=== PATIENT | female | born 1955 | race Caucasian/White ===

== ENCOUNTER 2023-09-05 07:44 | Outpatient (OUT) | payer MEDICARE, SELFPAY ==
--- NOTE | 2023-09-05 08:00 | NM_ITS ---
The [address] [address] Patient Name: HARSH MARRUFO MRN: [id number] date: 1955 Sex: F Assigned Patient Location: OR Current Patient Location: OR Accession/Order Number: [id number] Exam Date: 09/05/2023 08:00 Report Date: 09/05/2023 14:04 At the request of: NON-STAFF PHYSICIAN Procedure: OR gastric emptying study EXAMINATION: OR gastric emptying study HISTORY: NAUSEA AND VOMITING COMPARISON: No relevant comparison available. TECHNIQUE: The patient ingested 0.9 mCi Tc-99m sulfur colloid mixed with eggs. Anterior and posterior images were obtained at one minute intervals. Data were acquired for plotting and determination of gastric emptying. 30 minute, 1hour, 2 hour, 3 hour and 4 hour images FINDINGS: STOMACH: Normal appearance. 30 minute retention: 97% 1 hour retention: 60% 2 hour retention: 23% 3 hour retention: 11% 4 hour retention: 11% OR/OR gastric emptying study IMPRESSION: Normal exam Electronically authenticated by: FLORINDA GONZALEZ Date: 09/05/2023 14:04
== END 2023-09-05 07:45 | disposition home or self-care (01) ==
LOC: NM 07:48
PROVIDERS: PCP Family Medicine
DX: R11.2 Nausea with vomiting, unspecified (principal)
CPT/HCPCS: 78264; A9541